=== PATIENT | female | born 1970 | race Caucasian/White ===

== ENCOUNTER 2016-03-24 19:55 | Emergency (ER) | payer SELFPAY ==
[2016-03-24 20:41] VITALS: TEMP 99.2; O2SAT 96
--- NOTE | 2016-03-24 21:12 | ED.PDOC ---
History of Present Illness - General Chief Complaint: ENT Problem Stated Complaint: sore throat Time Seen by Provider: 03/24/16 20:33 Source: patient Exam Limitations: no limitations - History of Present Illness Initial Comments: Patient complains of three days of sore throat and general body aches. Occasional non-productive cough. Mild dyspnea today. Also developed an occipital headache today that she says is similar to ones she had years ago that she took imitrex for. No sick contacts. No nasal exudates. + head congestion. + subjective fever. No other complaints. Timing/Duration: other - 3 days Severity: moderate Improving Factors: nothing Worsening Factors: nothing Associated Symptoms: fever/chills Allergies/Adverse Reactions: Allergies Dihydroergotamine [From D.h.e. 45] Allergy (Verified 03/24/16 22:08) Ketorolac Tromethamine [From Toradol] Allergy (Unverified 01/22/16 23:39) Home Medications: Ambulatory Orders Amitriptyline HCl [Elavil] 100 mg PO BEDTIME 11/09/13 B-Complex W/Biotin & Folic Aci [Super B-Complex] 1 tab PO QAM 11/09/13 Carisoprodol [Soma] 350 mg PO TID PRN 11/09/13 Amoxicillin & Pot Clavulanate [Augmentin] 875 mg PO BID #19 tab 03/24/16 Citalopram Hydrobromide 20 mg PO 03/24/16 Review of Systems - Review of Systems Constitutional: States: see HPI EENTM: States: see HPI Respiratory: States: see HPI Cardiology: States: no symptoms reported Gastrointestinal/Abdominal: States: no symptoms reported Genitourinary: States: no symptoms reported Musculoskeletal: States: no symptoms reported Skin: States: no symptoms reported Neurological: States: no symptoms reported Endocrine: States: no symptoms reported Hematologic/Lymphatic: States: no symptoms reported Past Medical History (General) - Patient Medical History Hx Cardiac Disorders: No Hx Congestive Heart Failure: No Hx Pacemaker: No Hx Hypertension: No Hx Thyroid Disease: Yes Hx Diabetes: No Hx Cancer: No Hx MRSA: No Surgical History: cholecystectomy, Hysterectomy - Vaccination History Hx Tetanus, Diphtheria Vaccination: No Hx Influenza Vaccination: No Hx Pneumococcal Vaccination: No - Social History Hx Tobacco Use: - stop smoking Hx Alcohol Use: No Hx Substance Use: No - Female History Patient is a Female of Child Bearing Age (10 -59 yrs old): Yes - hysterectomy Patient : No - hsyterectomy Family Medical History - Family History Mother Family History: Unknown Living Status: Age at (years of age): 75 Cause of : Lung Cancer Hx Family Congestive Heart Failure: Yes Hx Cardiac Disease: Yes Brother Living Status: Age at (years of age): 51 Hx Family Congestive Heart Failure: Yes Hx Cardiac Disease: Yes Physical Exam - Physical Exam General Appearance: Alert Eye Exam: bilateral normal Ears, Nose, Throat: tonsillar swelling - 4+ with purulent discharge Neck: lymphadenopathy (R), lymphadenopathy (L), tender lateral Respiratory: rhonchi, wheezing Cardiovascular/Chest: normal peripheral pulses, regular rate, rhythm Gastrointestinal/Abdominal: normal bowel sounds, non tender, soft Neurologic: court magistrate II-XII nml as tested, no motor/sensory deficits, alert Skin Exam: normal color Progress - Progress Progress: 03/24/16 22:18 wbc 14.4 CXR negative rapid strep negative influenza negative Patient given augmentin 875 mg po x one in the ER and 10 day RX for acute sinusitis/purulent tonsillitis Departure - Departure Clinical Impression: Acute infective tonsillitis, Acute sinus infection Disposition: Discharge to Home or Self Care Condition: Good Departure Forms: ED Discharge - Pt. Copy, Patient Portal Self Enrollment Diet: resume usual diet Activity: increase activity as tolerated Prescriptions: Amoxicillin & Pot Clavulanate [Augmentin] 875 mg PO BID #19 tab Home Medications: Ambulatory Orders Amitriptyline HCl [Elavil] 100 mg PO BEDTIME 11/09/13 B-Complex W/Biotin & Folic Aci [Super B-Complex] 1 tab PO QAM 11/09/13 Carisoprodol [Soma] 350 mg PO TID PRN 11/09/13 Amoxicillin & Pot Clavulanate [Augmentin] 875 mg PO BID #19 tab 03/24/16 Citalopram Hydrobromide 20 mg PO 03/24/16 Additional Instructions: Take medications as prescribe. May use over the counter cough and cold formulas as directed. Throat lozenges or Chloroseptic for throat pain relief. Increase oral fluids. Follow up with primary care physician or return to the ER if symptoms not improving in 5-7 days.
[2016-03-24] MEDS ORDERED: SUMAtriptan SUCCINATE INJ 6 MG/0.5 ML VIAL SUBCU ONE ×2 (21:13→21:20)
--- NOTE | 2016-03-24 21:44 | RAD ---
EXAM DESCRIPTION: XR CHEST 2 VIEWS CLINICAL HISTORY: 45-year-old female with wheezing and subjective fever. COMPARISON: 01/22/2016. TECHNIQUE: Two view PA and lateral projections of the chest were obtained. FINDINGS: The cardiac mediastinal silhouette is within normal limits. Heart size is normal. The lungs are clear without discrete focal opacity, pleural effusion or pneumothorax. The osseous structures are within normal limits. IMPRESSION: No acute cardiopulmonary abnormalities. Electronically signed by: Yeny Casas MD 03/24/2016 21:42
[2016-03-24] MEDS ORDERED: ONDANSETRON ODT 8 MG TAB SL ONE (21:48)
[2016-03-24] MEDS ORDERED: AMOXICILLIN & POT CLAVULANATE 875 MG TAB PO ONE (22:17)
[2016-03-24 22:39] VITALS: BP 124/79
== END 2016-03-24 22:39 | disposition home or self-care (01) ==
LOC: ER 19:55
DX: J03.90 Acute tonsillitis, unspecified (principal); J01.90 Acute sinusitis, unspecified; E07.9 Disorder of thyroid, unspecified; Z88.8 Allergy status to other drugs, medicaments and biological substances; Z88.6 Allergy status to analgesic agent
CPT/HCPCS: 36415; 71020; 80053; 85025; 87070; 87502; 87651; J3030

== ENCOUNTER → 2016-04-04 | Outpatient (CLI) | payer OTHER ==
--- NOTE | 2016-04-04 15:32 | MAM ---
EXAM DESCRIPTION: US BREAST UNILATERAL; MAMMO BREAST DIAGNOSTIC BILATERAL CLINICAL HISTORY: Palpable nodule right breast 1 o'clock. COMPARISON: None available at the time of the exam. FINDINGS: Routine views are obtained. Glandular tissue is near completely fatty involuted. No dominant mass, architectural distortion or clustered microcalcification. Directed ultrasound exam in the region of clinical concern demonstrates normal fibrofatty tissue. IMPRESSION: Benign exam. No mammographic or sonographic evidence for malignancy. BIRAD CATEGORY: 2 BENIGN RECOMMENDATION: Routine annual mammography. Findings and recommendations were communicated to the patient by the technologist. Electronically signed by: Hermila Chen 04/04/2016 15:30
== END ==
LOC: MAMMO 14:00
PROVIDERS: ATTEND Family Medicine
DX: R68.89 Other general symptoms and signs (principal)

== ENCOUNTER → 2016-11-25 | Outpatient (CLI) | payer SELFPAY | END | disposition home or self-care (01) | LOC: YCFC.O 12:17 | PROVIDERS: ATTEND Nurse Practitioner Family | DX: R60.0 Localized edema (principal) ==

== ENCOUNTER → 2016-12-27 | Outpatient (CLI) | payer SELFPAY | END | disposition home or self-care (01) | LOC: LAB.O 15:18 | PROVIDERS: ATTEND Nurse Practitioner Family | DX: E03.9 Hypothyroidism, unspecified (principal) ==

== ENCOUNTER → 2018-05-13 | Outpatient (CLI) | payer SELFPAY ==
--- NOTE | 2018-05-13 17:51 | RAD ---
EXAM DESCRIPTION: Toes,Left CLINICAL HISTORY: L08.9 COMPARISON: None. TECHNIQUE: 3 views left FINDINGS: Mild degenerative changes are observed in the metatarsal phalangeal joint of the first digit. Mild distal interphalangeal joint arthritis is observed. No fracture or dislocation is seen. No bone erosion or destruction is detected. IMPRESSION: Mild degenerative changes observed. The exam is otherwise unremarkable. Electronically signed by: Jim Bermeo MD 05/13/2018 5:48 PM CDT
== END ==
LOC: LAB.O 16:46
PROVIDERS: ATTEND Nurse Practitioner Family
DX: L08.9 Local infection of the skin and subcutaneous tissue, unspecified (principal)

== ENCOUNTER → 2019-12-17 | Outpatient (CLI) | payer BC ==
--- NOTE | 2019-12-17 11:59 | CT ---
EXAM DESCRIPTION: Abdomen/Pelvis w/wo Contrast CLINICAL HISTORY: ABDOMINAL MASS COMPARISON: None. TECHNIQUE: Pre and postcontrast CT images of the abdomen and pelvis are obtained. This exam was performed according to our departmental dose-optimization program, which includes automated exposure control, adjustment of the mA and/or kV according to patient size and/or use of iterative reconstruction technique . FINDINGS: The visualized lung bases show no acute findings. Less than 5 mm calcified and noncalcified pulmonary nodules are seen in the lower lobes. Right lobe liver measures 18 cm craniocaudal. Mild nodularity of the liver capsule. Heterogeneous mildly decreased attenuation of the liver is seen. No enhancing hepatic mass. Spleen is enlarged at 16.6 cm craniocaudal. The pancreas and adrenal glands are unremarkable. Surgical clips from cholecystectomy. Abdominal vasculature is unremarkable. No nephrolithiasis. Normal cortical enhancement. No ureteral calcification or obstruction. Urinary bladder is poorly distended but fills with contrast on delayed images. Uterus is not identified and presumed surgically absent. The ovaries are not identified. The appendix is normal. Stomach is contracted but unremarkable. No small bowel obstruction or bowel wall thickening. Mild scattered diverticuli of the colon mainly in the descending to sigmoid region are seen without associated inflammatory changes or fluid collections. No abdominal wall hernia. No pathologically enlarged abdominal or retroperitoneal lymphadenopathy. Scattered less than 1 cm abdominal mesenteric and retroperitoneal lymph nodes are seen. Surgical clips in the right lower quadrant of the abdomen are seen. Osseous structures show no aggressive bony lesions. Mostly facet arthropathy from L4 through S1 is seen. IMPRESSION: Splenomegaly is seen. Hepatomegaly. Mild nodularity of the liver capsule could be related to imaging technique versus early changes related to cirrhosis. Mild colon diverticulosis without CT evidence of diverticulitis. No CT evidence of abdominal mass. Small calcified and noncalcified pulmonary nodules in the lung bases are likely related to old granulomatous disease. Consider follow-up low-dose noncontrast CT imaging in one year if patient has elevated risk factors. Electronically signed by: Napoleon Chu MD 12/17/2019 11:57 AM CDT
== END ==
LOC: CT 10:56
PROVIDERS: ATTEND Family Medicine
DX: R16.2 Hepatomegaly with splenomegaly, not elsewhere classified (principal); K57.30 Diverticulosis of large intestine without perforation or abscess without bleeding; R91.8 Other nonspecific abnormal finding of lung field; K76.9 Liver disease, unspecified